=== PATIENT | female | born 1975 ===

== ENCOUNTER 2018-01-17 18:37 | Emergency (ER) | payer SELFPAY ==
--- NOTE | 2018-01-17 19:10 | PDOC ---
History of Present Illness - History of Present Illness Initial Comments: 01/17/18 19:41 The patient is a 43 year old female, with no significant past medical history, who presents to the emergency department with, right calf pain. As per patient, she was walking down the stairs 3 weeks ago (12/29) when she had a cramp and felt a pop in her calf. She notes pain to the calf intermittently and today notes hearing/feeling a tearing sensation to the calf. She takes Ibuprofen, with minimal relief prompting her visit to the ER. She denies any recent long distance travel, control usage, or family history of DVT. She denies recent fevers, chills, headache or dizziness. She denies recent nausea, vomit, diarrhea or constipation. She denies recent dysuria, frequency, urgency or hematuria. She denies recent chest pain or shortness of breath. PAST MEDICAL HISTORY: no significant history PAST SURGICAL HISTORY: no significant history FAMILY HISTORY: no pertinent history SOCIAL HISTORY: Pt lives with family and is employed. MEDICATIONS: reviewed ALLERGIES: As per nursing notes ROS: General: No fevers or chills, no weakness, no weight loss HEENT: No change in vision. No sore throat,. No ear pain CardioVascular: No chest pain or shortness of breath Respiratory:No cough, or wheezing. Gastrointestinal: no nausea, vomiting, diarrhea or constipation, No rectal bleeding Genitourinary: No dysuria, hematuria, or frequency Musculoskeletal: Right calf pain. No joint pain or swelling Neurologic: No headache, vertigo, dizziness or loss of consciousness Psychiatric: nor depression Skin: No rashes or easy bruising Endocrine: no increased thirst or abnormal weight change Allergic: no skin or latex allergy All other systems reviewed and normal Physical Exam: GENERAL: The patient is awake, alert, and fully oriented, in no acute distress. HEAD: Normal with no signs of trauma. EYES: Pupils equal, round and reactive to light, extraocular movements intact, sclera anicteric, conjunctiva clear. +EXTREMITIES: Right calf: No palpable step off or bony tenderness. Normal range of motion, no edema. NEUROLOGICAL: Normal speech, normal gait. PSYCH: Normal mood, normal affect. SKIN: Warm, Dry, normal turgor, no rashes or lesions noted. <Alex Christy - Last Filed: 01/17/18 19:41> - General History Source: Patient Exam Limitations: No Limitations - History of Present Illness Initial Comments: 01/17/18 20:10 A portion of this note was documented by scribe services under my direction. I have reviewed the details of the note, within reason, and agree with the documentation. The case summary and management plan written by me. Ultrasound Doppler no DVT Assessment and plan: This is a 43-year-old female with pain in her right calf. Patient states she felt a pop a couple weeks ago when she was going upstairs and then again yesterday felt a similar pop. Patient said in between the pain did improve but now is worse again some she comes in for evaluation. Patient however is able to ambulate on my exam there was some tenderness and mild swelling otherwise no ecchymosis or hematoma. Patient had an ultrasound Doppler that was negative for DVT. Patient referred to orthopedist for follow-up. Patient told to take an anti- inflammatory and purchase a elastic compression dressing that she can put over the calf for extra support. Patient discharged home <Kris Simmons I - Last Filed: 01/17/18 20:14> - General Chief Complaint: Pain Stated Complaint: RIGHT LEG PAIN Time Seen by Provider: 01/17/18 19:09 Past History <Alex Christy - Last Filed: 01/17/18 19:41> - Past Medical History COPD: No - Surgical History Abdominal Surgery: Yes (hernia repair) Appendectomy: Yes Cholecystectomy: Yes - Suicide/Smoking/Psychosocial Hx Smoking History: Current every day smoker Number of Cigarettes Smoked Daily: 3 Information on smoking cessation initiated: Yes 'Breaking Loose' booklet given: 01/17/18 Substance Use Type: None <Kris Simmons I - Last Filed: 01/17/18 20:14> - Past Medical History Allergies/Adverse Reactions: Allergies Allergy/AdvReac Type Severity Reaction Status Date / Time egg AdvReac Severe Itching Verified 01/17/18 18:59 iv dye AdvReac Severe Uncoded 01/17/18 18:59 Home Medications: Ambulatory Orders NK [No Known Home Medication] 01/17/18 *Physical Exam - Vital Signs Last Vital Signs Temp Pulse Resp BP Pulse Ox 98.4 F 76 18 117/75 99 01/17/18 18:38 01/17/18 18:38 01/17/18 18:38 01/17/18 18:38 01/17/18 18:38 <Alex Christy - Last Filed: 01/17/18 19:41> - Vital Signs Last Vital Signs Temp Pulse Resp BP Pulse Ox 98.4 F 76 18 117/75 99 01/17/18 18:38 01/17/18 18:38 01/17/18 18:38 01/17/18 18:38 01/17/18 18:38 <Kris Simmons I - Last Filed: 01/17/18 20:14> *DC/Admit/Observation/Transfer - Attestations Scribe Attestion: 01/17/18 19:41 Documentation prepared by Alex Christy, acting as medical anthropologist for Kris Simmons MD. <Alex Christy - Last Filed: 01/17/18 19:41> - Discharge Dispostion Decision to Admit order: No <Kris Simmons I - Last Filed: 01/17/18 20:14> Diagnosis at time of Disposition: Pain of right calf - Discharge Dispostion Disposition: HOME Condition at time of disposition: Stable - Referrals Referrals: Chris Aguilar MD [Staff Physician] - - Patient Instructions Printed Discharge Instructions: Smoking Cessation Additional Instructions: For the pain take ibuprofen 3 tablets 3 times a day with food don't take on an empty stomach. Wear an Refugio wrap or purchase a elastic or compression-type sleeve that you can put over the calf area given some extra support. Follow-up with an orthopedist if you need an orthopedist call Dr. Aguilar. Return to the emergency department immediately with ANY new, persistent or worsening symptoms. Continue any medications as previously prescribed by your physician. You should follow up with your primary doctor as soon as possible regarding today's emergency department visit. . Please make sure your doctor reviews the results of your emergency evaluation. Thank you for coming to the Emergency Department today for your care. It was a pleasure to see you today. Please note that your evaluation is INCOMPLETE until you follow-up with your doctor. - Post Discharge Activity
[2018-01-17 19:19] VITALS: BP 117/75; PULSE 76; TEMP 98.4; BMI 33.9
== END 2018-01-17 20:20 | disposition home or self-care (01) ==
LOC: FER 18:37
DX: M79.661 Pain in right lower leg (principal)
CPT/HCPCS: 93971-TC; 99282-25